=== PATIENT | male | born 1960 | race Caucasian/White ===

== ENCOUNTER 2025-09-02 17:15 | Emergency (ER) | payer OTHER ==
[~2025-09-02] VITALS: Ht 180.3 cm; Wt 105.0 kg
[2025-09-02] MEDS ORDERED: JARDIANCE10 MG (17:30)
[2025-09-02] MEDS ORDERED: METFORMIN HCL500 MG (17:30)
[2025-09-02] MEDS ORDERED: LIPITOR10 MG (17:31)
[2025-09-02] MEDS ORDERED: OXYCODONE/APAP 5/325 TAB PO ONE (18:00)
[2025-09-02] MEDS ORDERED: ONDANSETRON 4 MG TAB ODT SL ONE (18:00)
[2025-09-02] MEDS ORDERED: PERCOCET 5-3251 EACH PO (18:05)
[2025-09-02] MEDS ORDERED: ONDANSETRON ODT8 MG PO (18:05)
[2025-09-02] MEDS ORDERED: ONDANSETRON 4 MG HOME.PACK SL ONE (18:15)
[2025-09-02] MEDS ORDERED: OXYCODONE/ACETAMINOPHEN 1 TAB HOME.PACK PO ONE (18:15)
[2025-09-02 18:33] VITALS: BP 196/103
== END 2025-09-02 18:20 | disposition home or self-care (01) ==
LOC: ED 17:15
DX: S82.832A Other fracture of upper and lower end of left fibula, initial encounter for closed fracture (principal); W18.30XA Fall on same level, unspecified, initial encounter; Z79.899 Other long term (current) drug therapy
CPT/HCPCS: 73610; 99283; A9270